=== PATIENT | female | born 1990 | race Caucasian/White ===

== ENCOUNTER 2017-03-23 05:33 | Emergency (ER) | payer BC ==
[2017-03-23] MEDS ORDERED: Ibuprofen 200 MG TAB ONE (06:15)
[2017-03-23] MEDS ORDERED: Acetaminophen/Codeine 30-300mg Tablet ONE (06:15)
[2017-03-23] MEDS ORDERED: Ondansetron ODT 4 MG TAB ONE (06:20)
== END 2017-03-23 07:04 | disposition home or self-care (01) ==
LOC: SCSER 05:33
DX: J10.1 Influenza due to other identified influenza virus with other respiratory manifestations (principal); M45.9 Ankylosing spondylitis of unspecified sites in spine; Z79.899 Other long term (current) drug therapy
CPT/HCPCS: 99283; Q0162

== ENCOUNTER 2020-03-11 13:57 | Outpatient (CLI) | payer BC ==
--- NOTE | 2020-03-11 14:21 | RAD ---
TWO VIEW CHEST: 03/11/20 HISTORY: Shortness of breath. Lung cueto are clear. No infiltrate. Heart and mediastinum appear normal. Osseous structures normal. IMPRESSION: No acute process. POS: [facility]
== END 2020-03-11 13:58 | disposition home or self-care (01) ==
LOC: BICRAD 13:57
PROVIDERS: ATTEND Internal Medicine Rheumatology
DX: R06.02 Shortness of breath (principal)
CPT/HCPCS: 71046

== ENCOUNTER 2021-06-21 11:12 | Day surgery (SDC) | payer BC ==
[2021-06-16 12:50] VITALS: BMI 20.5
[2021-06-21] MEDS ORDERED: Acetaminophen 500 MG TAB ONE (12:11)
[2021-06-21] MEDS ORDERED: Ketorolac Tromethamine 30 MG/ML VIAL ONE (12:11)
[2021-06-21] MEDS ORDERED: Lidocaine 1% w/Epinephrine 1:100K 30 ML VIAL ONE (14:33)
[2021-06-21] MEDS ORDERED: Bupivacaine 0.25% 10 ML VIAL ONE (14:33)
[2021-06-21] MEDS ORDERED: ceFAZolin 2 GM/Dextrose 50 ML IVPB ONE (14:35)
[2021-06-21] MEDS ORDERED: Fentanyl 100 MCG/2 ML VIAL ONE (14:37)
[2021-06-21] MEDS ORDERED: Famotidine/PF 20 mg/2ml Vial ONE (14:49)
[2021-06-21] MEDS ORDERED: Ondansetron PF 4 MG/2 ML Vial ONE (15:01)
[2021-06-21] MEDS ORDERED: PROPOFOL 200 MG/20 ML VIAL ONE (15:01)
[2021-06-21] MEDS ORDERED: ePHEDrine 50 MG/ML VIAL ONE (15:01)
[2021-06-21] MEDS ORDERED: Dexamethasone 20 MG/5 ML VIAL ONE (15:01)
[2021-06-21] MEDS ORDERED: Lidocaine 1% PF 5 ML VIAL ONE (15:01)
== END 2021-06-21 17:17 | disposition home or self-care (01) ==
LOC: SDC 11:12
PROVIDERS: ATTEND Specialist
PROC: 06BY3ZC Excision of Hemorrhoidal Plexus, Percutaneous Approach (ICD-10-PCS; principal; 2021-06-21)
DX: K64.4 Residual hemorrhoidal skin tags (principal); K64.8 Other hemorrhoids; M45.9 Ankylosing spondylitis of unspecified sites in spine; J32.9 Chronic sinusitis, unspecified; M41.9 Scoliosis, unspecified; Z79.899 Other long term (current) drug therapy; Z88.1 Allergy status to other antibiotic agents; Z91.040 Latex allergy status
CPT/HCPCS: 88304; J0690; J1100; J1885; J2405; J2704; J3010; J3490; S0020; S0028